=== PATIENT | female | born 1935 | race Caucasian/White ===

== ENCOUNTER 2022-12-03 08:37 | Outpatient (CLI) | payer MEDICARE, OTHER | END 2022-12-03 08:38 | disposition home or self-care (01) | LOC: CSHWCC 08:37 | PROVIDERS: ATTEND Nurse Practitioner Family | DX: T81.89XD Other complications of procedures, not elsewhere classified, subsequent encounter (principal); L98.499 Non-pressure chronic ulcer of skin of other sites with unspecified severity | CPT/HCPCS: 11044; 87070; 87186; 87205 ==

== ENCOUNTER 2023-02-24 13:40 | Outpatient (CLI) | payer MEDICARE, MEDICAID | END 2023-02-24 13:41 | disposition home or self-care (01) | LOC: CSHWCC 13:40 | PROVIDERS: ATTEND Nurse Practitioner Family | DX: T81.89XD Other complications of procedures, not elsewhere classified, subsequent encounter (principal); L97.426 Non-pressure chronic ulcer of left heel and midfoot with bone involvement without evidence of necrosis | CPT/HCPCS: 99213; G0463 ==